=== PATIENT | female | born 1970 | race Hispanic/Latino ===

== ENCOUNTER 2016-10-04 13:00 | Emergency (ER) | payer OTHER ==
[~2016-10-04] VITALS: Ht 162.6 cm; Wt 84.1 kg
[~2016-10-04 13:00] MED LIST: BCP PO; DICY10CA56 PO; DULO30CA PO; DULO60CA42 PO; GABA-502 PO; HYDR-4003 PO; OMEP40CA36 PO; ONDA4TAB9 PO; RANI150C4 PO
[2016-10-04 13:03] VITALS: BP 145/100; PULSE 89; RESP 12; O2SAT 100
--- NOTE | 2016-10-04 13:41 | ED.REPORT ---
HPI-Headache Date of Service Oct 04, 2016 ED Provider: History of Present Illness: 46-year-old female here for increased right-sided facial pain. She has a history of trigeminal neuralgia which started January 2016. She has had multiple MRIs and sees at [facility]. She started having pressure and sharp spikes of pain behind her right eye as well as increased dizziness and neck swelling in the last 5 days. She also has abnormal visual changes that come and go. She explains them as a change in depth perception. No blurry vision, photosensitivity, eye pain or acute visual changes. She called her surgeon and had her surgery date moved up to October 31 and he increased her Trileptal to 300 in the morning and 600 at night from 450 mg twice a day. This was done 4 days ago but she has not noted any improvement. The dizziness will be intense and short-lived but also intense and will last for 24 hours. The neck swelling has resolved since yesterday. Currently her pain is out of 4-5 out of 10. She is not nauseous or dizzy at this time. She has no history of migraines or any recent head trauma. Nursing Notes Stated Complaint: RIGHT SIDE FACE PAIN/DIZZY Chief Complaint: General Complaint Allergies: Coded Allergies: Penicillins (Verified Allergy, Severe, 02/28/16) carbamazepine (Verified Allergy, Intermediate, rash, 10/04/16) ibuprofen (Verified Adverse Reaction, Intermediate, stomach erosion, 02/27) Scheduled ([Bcp]) 1 TAB PO DAILY Duloxetine (Cymbalta) 30 Mg Capsule. 30 MG PO DAILY Duloxetine (Cymbalta) 60 Mg Capsule. 60 MG PO DAILY Gabapentin (Gabapentin) 300 Mg Capsule 900 MG PO BID Hydrocodone-Acetaminophen 5-325 mg (Hydrocodone-Acetaminophen 5-325 mg) 1 Each Tablet 1 TABLET PO BID Omeprazole (Omeprazole) 40 Mg Capsule. 40 MG PO BID Ranitidine (Ranitidine) 150 Mg Capsule 150 MG PO BID Scheduled PRN Dicyclomine (Bentyl) 10 Mg Capsule 10 MG PO DAILY PRN PRN For GI Cramps Ondansetron ODT (Zofran ODT) 4 Mg Tablet 4 MG PO Q4H PRN PRN For Nausea General Time Seen by MD: 13:19 Chief Complaint Headache, Other (trigeminal neuralgia) Hx Obtained From: Patient Arrived By: Walk-in Sudden in Onset?: No Onset Occurred: 5 days ago Context of Onset: Exercise Symptom Duration: Waxes and wanes Location: : Frontal right: Temporal right Quality: Aching, Pressure, Sharp Severity: Current: Pain level 4 out of 10 Severity: Maximum: Pain level 10 out of 10 Recent Healthcare: Recent doctor visit, Recent testing, Previous diagnosis Similar Sx Previous: Yes Past Medical History Past Medical History Notes: PINA Guzman in [place] , not seeing her any more, per patient has been cut off of pain medications 01/05/2016 Dr. Solano, oral surgeon [phone] Santiago [facility] neurosurgeon- trigeminal neuralgia Past Medical History Chronic Hip Pain - managed by Jovanna Diaz and EMR indicates [place] Hx of ovarian cyst Anxiety Depression Fibromyalgia Arthritis Past Surgical History Tubal ligation Ablation Family History Noncontributory Smoking History Never Smoker Social History Prior RN Drug Use: Denies drug use Other Social History: Good social support, , Local resident Ambulatory Status Independent Review of Systems Basic Review of Systems Respiratory: No shortness of breath Cardiovascular: No chest pain : No dysuria Constitutional: Denies: Chills, Fatigue, Fever Eyes: Denies: Blurred bilateral, Discharge bilateral, Eye pain bilateral, Photophobia, Visual loss bilateral Ears / Nose / Throat: Denies: Throat pain (R sided, resolving) GI: Reports: Nausea, Vomiting, Denies: Abdominal pain Musculoskeletal: Denies: Back pain Neurologic: Reports: Dizziness, Headache, Spinning sensation, Vision change, Denies: Confusion, Lightheaded, Numbness, Slurred speech, Syncope, Weakness Complete sys rev & neg: except as marked. Physical Exam Initial Vital Signs Vital Signs (First) Date Time Temp Pulse Resp B/P Pulse Ox O2 Delivery O2 Flow Rate FiO2 10/04/16 13:03 36.7 89 12 145/100 100 Room Air Initial VS: Reviewed, Vital signs normal ENT: Mucous membranes moist, Conjunctiva normal, No scleral icterus Respiratory: Breath sounds normal, Clear to auscultation, No respiratory distress Cardiovascular: Regular rate & rhythm, Heart sounds normal, Intact distal pulses Extremities: Vascular intact, Neuro intact, No swelling, No tenderness Skin: Warm, Dry, No cyanosis Psychiatric: Mood/affect normal, Behavior normal, Normal thought content General/Constitutional: Awake, Alert Head / Eyes: Normocephalic, PERRL, EOMI, No nystagmus, No photophobia, Conjunctiva NL, Eyelids NL, Fundi NL, Temporal arteries NL tender and numb around periorbital area on R side. no papilladema, vessels distinct Neurologic: Oriented X3, Speech NL, No motor deficits, No sensory deficits, CN II - XII intact, Cerebellar NL, Memory NL, Gait NL ENT: Airway patent, Mucous membranes moist, Pharynx NL, No sinus tenderness Respiratory / Chest: Breath sounds NL, Breath sounds = bilat, No respiratory distress, No rales, No rhonchi, No wheezing Interpretation & Diagnostics CT Head Interpretation PROCEDURE: CT BRAIN WITHOUT CONTRAST ([id number]) INDICATIONS: R eye/facial pain TECHNIQUE: Noncontrast 4.5 mm thick angled axial sections acquired from the foramen magnum to the vertex, with coronal reformats. COMPARISON: None. FINDINGS: Image quality: Excellent. CSF spaces: Basal cisterns are patent. No extra-axial fluid collections. Ventricles are normal in size and shape. Brain: There is a 5 mm hypodensity in the medial aspect of the left temporal lobe, probably dilated Virchow-Douglas space. No midline shift. No intracranial masses or hemorrhage. Suarez-white matter interface is normal. Skull and face: Calvarium and visualized facial bones are intact, without suspicious lesions. Sinuses: Visualized sinuses and mastoids are clear. IMPRESSION: 1. No acute intracranial abnormalities. 2. A 5 mm hypodensity in the mesial temporal lobe, most likely dilated perivascular space. A differential diagnosis is an old lacunar infarct. If clinical symptoms persist, MRI is suggested for further evaluation. Procedures Procedure Notes: tonopen- pressures in both eyes 18, 19, 18. measurements wtih 5% reliability. Re-Eval/Medical Decision Med Decision/Clinical Course paged dr santiago. surgeon oncall for him is in a 2 hr procedure. will discuss with ER Discussed with dR Fox, suggests tonopen, ct scan, pain control. offered trigeminal nerve block with lidocane in nare, pt does not want this, just her usual norco 7.5, [address] page, field applications specialist neurosurgeon for Dr Santiago called back at [phone]. he states this does not sound like trigeminal neuralgia. CT neg, discussed with Dr page. will do tonometer, have pt f/u with pcp. discussed d/c plan with pt. she will f/u with DR muniz Discharge & Departure Shift Change Sign-Out Laboratory Evaluation: Lab evaluation discussed Imaging Studies: Imaging discussed Procedures: Results discussed Response to Therapy: Improved Impression: Primary Impression: Trigeminal neuralgia of right side of face Additional Impression: Headache Headache type: unspecified Headache chronicity pattern: acute headache Intractability: not intractable Qualified Code: R51 - Headache Additional Instructions: Continue current medication regimen. Your workup showed no acute findings today. Follow-up with Dr. Muniz in 1-2 days if symptoms persist. Follow-up with your neurosurgeon for the procedure as scheduled. Return for increased neuro symptoms like altered mental status, confusion, severe dizziness, visual issues or any other concerning findings Referrals: Sriram Muniz DO (PCP) EDSupervising Provider for APC: Samira Fox MD copies to: Sriram Muniz DO; Samira Fox MD, Linnea K P[employer]ER Oct 04, 2016 13:41
[2016-10-04] MEDS ORDERED: HYDROcodone-APAP 7.5-325 mg Tablet PO ONE (14:45)
[2016-10-04] MEDS ORDERED: Tetracaine 0.5% 4 mL Ophthalmic Solution ONE (14:53)
--- NOTE | 2016-10-04 15:07 | DRSVH ---
PROCEDURE: CT BRAIN WITHOUT CONTRAST ([id number]) INDICATIONS: R eye/facial pain TECHNIQUE: Noncontrast 4.5 mm thick angled axial sections acquired from the foramen magnum to the vertex, with c oronal reformats. COMPARISON: None. FINDINGS: Image quality: Excellent. CSF spaces: Basal cisterns are patent. No extra-axial fluid collections. Ventricles are normal in size and shape. Brain: There is a 5 mm hypodensity in the medial aspect of the left temporal lobe, probably dilated Virchow-Douglas space. No midline shift. No intracranial masses or hemorrhage. Suarez-white matter inte rface is normal. Skull and face: Calvarium and visualized facial bones are intact, without suspicious lesions. Sinuses: Visualized sinuses and mastoids are clear. IMPRESSION: 1. No acute intracranial abnormalities. 2. A 5 mm hypodensity in the mesial temporal lobe, most likely dilated perivascular space. A differen tial diagnosis is an old lacunar infarct. If clinical symptoms persist, MRI is suggested for further evaluation. Dictated by: Himanshu Avitia M.D. on 10/04/2016 at 15:00 Approved by: Himanshu Avitia M.D. on 10/04/2016 at 15:05
[2016-10-04 15:57] VITALS: BP 135/95; PULSE 72; RESP 14; O2SAT 96
== END 2016-10-04 15:58 ==
LOC: SED 13:00
DX: G50.0 Trigeminal neuralgia (principal); F41.9 Anxiety disorder, unspecified; F32.9 Major depressive disorder, single episode, unspecified; Z88.0 Allergy status to penicillin; Z88.6 Allergy status to analgesic agent; Z88.8 Allergy status to other drugs, medicaments and biological substances

== ENCOUNTER 2016-10-06 10:34 | Emergency (ER) | payer OTHER ==
[2016-10-06 10:42] VITALS: BP 156/92; PULSE 96; RESP 16; O2SAT 99
--- NOTE | 2016-10-06 10:56 | ED.REPORT ---
HPI-General Illness Date of Service Oct 06, 2016 ED Provider: History of Present Illness: PT here for refill of morphine 15mg. Scheduled to take it 1-2 tabs Q6 hrs prn Trigneminal neuralgia R sided face pain. SHe has been taking it more often, 6x per day. She also has [place] 7.5mgs. She still has these but they are not effective. she Called ALIA Painter internal consultant for her MD Andelin this AM and he told her to go to . They sent her here for morphine Rx. No new symptoms since her last visit 2 days ago. Continues to have PALACIO, dizziness. She went to work yesterday as she had a good day. Today was worse. Nursing Notes Stated Complaint: RIGHT SIDE FACIAL PAIN Chief Complaint: General Complaint Nursing Notes Reviewed: Yes Allergies: Coded Allergies: Penicillins (Verified Allergy, Severe, 02/28/16) carbamazepine (Verified Allergy, Intermediate, rash, 10/04/16) ibuprofen (Verified Adverse Reaction, Intermediate, stomach erosion, 02/27) Scheduled ([Bcp]) 1 TAB PO DAILY Duloxetine (Cymbalta) 30 Mg Capsule.dr 30 MG PO DAILY Duloxetine (Cymbalta) 60 Mg Capsule.dr 60 MG PO DAILY Gabapentin (Gabapentin) 300 Mg Capsule 900 MG PO BID Hydrocodone-Acetaminophen 5-325 mg (Hydrocodone-Acetaminophen 5-325 mg) 1 Each Tablet 1 TABLET PO BID Omeprazole (Omeprazole) 40 Mg Capsule.dr 40 MG PO BID Ranitidine (Ranitidine) 150 Mg Capsule 150 MG PO BID Scheduled PRN Dicyclomine (Bentyl) 10 Mg Capsule 10 MG PO DAILY PRN PRN For GI Cramps Ondansetron ODT (Zofran ODT) 4 Mg Tablet 4 MG PO Q4H PRN PRN For Nausea General Time Seen by MD: 10:55 Chief Complaint Headache Hx Obtained From: Patient Arrived By: Walk-in Onset Occurred: Onset unknown Context of Onset: Ran out of medication Symptom Duration: Intermittent Location: : Face: Head Quality: Same as prior Radiation: : Does not radiate Severity: Current: Severe Severity: Maximum: Severe Recent Healthcare: Recent doctor visit, Previous diagnosis Similar Sx Previous: Yes Past Medical History Past Medical History Notes: PINA Guzman in [place] , not seeing her any more, per patient has been cut off of pain medications 01/05/2016 Dr. Solano, oral surgeon [phone] Maher [facility] neurosurgeon- trigeminal neuralgia Past Medical History Chronic Hip Pain - managed by Jovanna Diaz and EMR indicates [place] Hx of ovarian cyst Anxiety Depression Fibromyalgia Arthritis Past Surgical History Tubal ligation Ablation Family History Noncontributory Smoking History Never Smoker Social History Prior RN Drug Use: Denies drug use Other Social History: Good social support, , Local resident Ambulatory Status Independent Review of Systems R sided head pain Full Review of Systems Constitutional: Denies: Chills, Fatigue, Fever Eyes: Denies: Blurred bilateral Respiratory: Denies: Dyspnea on exertion Cardiovascular: Denies: Chest pain GI: Denies: Abdominal pain, Nausea, Vomiting Neurologic: Reports: Headache Complete sys rev & neg: except as marked. Physical Exam Vital Signs Vital Signs Date Time Temp Pulse Resp B/P Pulse Ox O2 Delivery O2 Flow Rate FiO2 10/06/16 14:04 36.6 74 16 122/86 97 Room Air 10/06/16 10:42 36.7 96 16 156/92 99 Room Air Initial VS: Reviewed, Vital signs normal General/Constitutional: Well-developed, Well-nourished Head / Eyes: Atraumatic, Normocephalic, PERRL Skin: Warm, Dry, No cyanosis Neurologic: Alert, Oriented, Nonfocal Psychiatric: Mood/affect normal, Behavior normal, Normal thought content Procedures Procedure Notes: sphenopalantine ganglion block. The mixture of 1% lidocaine and Marcaine was used to anesthetize and provide the block. A MAD device was used with 1% Lidoderm anesthetize the nasal passageway. A culture swab with Marcaine and lidocaine mixture injected into it as well as dripped on the cotton end as well was inserted into the nasal passageway past internal turbinate until I was not able to proceed further. The cotton swab was left in place for 20 minutes. She did not feel any immediate relief. We will see if she feels really next few hours. Patient discharged after procedure. Re-Eval/Medical Decision Med Decision/Clinical Course Eddie Mckinnon pa-c consulted as he is internal consultant for dr muniz. He states she should continue the [place] she has these at home. She had actually called him this morning they advised her to go to urgent care. She came here as they would not prescribe morphine. He does not want me to prescribe any morphine she states she should take her [place]. He states she has an appointment with Dr. Muniz on Saturday. I also informed the PA of her visit 2 days ago and what occurred at that time. We did a CAT scan of her head and I did talk to her neurosurgeon who did not advise any further treatment. She has follow-up with her neurosurgeon on 10/31/2016. At this point she has no new symptoms in the last few weeks and certainly none since her last visit 2 days ago. She is here for pain control. I will refer her back to her PCPs office for further prescriptions. pt tearful prior to leaving, asking for a shot here. will give 1mg morphine IM UA today Positive for opiates only. Dr Park at beside for eval/discussion as well. discussed no further Rx's from ER. PT agrees to try a sphenopalantine ganglion block. Discharge & Departure Primary Impression: Trigeminal neuralgia of right side of face Disposition: Home Discharge Condition All VS Reviewed: Yes Condition: Stable Patient Instructions: Trigeminal Neuralgia (ED) Additional Instructions: Thank you for your visit today. Primary care's office was consulted today and they did not advise me to prescribe any further pain meds for you, You need to get further refills for your pain medications from your primary care office. Follow-up on Saturday with . You may call the on-call provider this week and for any further issues. Today we tried a sphenopalantine ganglion block in your right nare with lidocaine and marcaine. We will see if this is effective. it may be worth trying again in the future. Referrals: Sriram Muniz DO (PCP) EDSupervising Provider for APC: Marlon German DO copies to: Sriram Muniz Timothy S DO Oct 06, 2016 10:56 Constanza Zhong Oct 06, 2016 11:31
[2016-10-06 14:04] VITALS: BP 122/86; PULSE 74; RESP 16; O2SAT 97
== END 2016-10-06 14:05 | disposition home or self-care (01) ==
LOC: SED 10:34
DX: G50.0 Trigeminal neuralgia (principal); F41.8 Other specified anxiety disorders; M79.7 Fibromyalgia; Z88.0 Allergy status to penicillin; Z88.6 Allergy status to analgesic agent; Z88.8 Allergy status to other drugs, medicaments and biological substances
CPT/HCPCS: 64505; 81002; 96372; 99284; J2270